=== PATIENT | male | born 1990 | race Caucasian/White ===

== ENCOUNTER 2020-08-16 11:51 | Emergency (ER) | payer OTHER ==
[~2020-08-16] VITALS: Ht 190.5 cm; Wt 82.3 kg
[2020-08-16] MEDS ORDERED: DEXAMETHASONE 4 MG/ML, 1ML PO ONE (12:30)
[2020-08-16] MEDS ORDERED: SODIUM CHLORIDE FLUSH 10ML SYR IVF ONE (12:30)
--- NOTE | 2020-08-16 12:38 | NUR ---
Pt sent from for possible tonsilar abcess on right side. S/sx started 6 days ago. Taking Fluticasone and Mucinex as prescribed. States he wakes up to drool in the morning but denies difficulty swallowing, states "it's just painful."
[2020-08-16 12:45] LABS: BASOPHILS % (AUTO) 1 % (0-1); EOSINOPHILS % (AUTO) 1 % (1-7); LYMPHOCYTES % (AUTO) 17 % (22-44); MEAN CORPUSCULAR HEMOGLOBIN 32.5 pg (27.5-34.5); MEAN CORPUSCULAR HGB CONC 35.4 g/dL (33.2-36.2); MEAN PLATELET VOLUME 7.6 fL (7.4-10.4); MONOCYTES % (AUTO) 11 % (2-9); NEUTROPHILS % (AUTO) 71 % (42-75); PLATELET COUNT 240 x10^3/uL (130-400); RED BLOOD COUNT 4.86 x10^6/uL (4.38-5.82); RED CELL DISTRIBUTION WIDTH 12.7 % (9.4-14.8)
[2020-08-16 12:56] LABS: MD NO
--- NOTE | 2020-08-16 13:20 | NUR ---
Pt to imaging at this time.
[2020-08-16 13:34] LABS: ALBUMIN 4.3 g/dL (3.4-5.0); ANION GAP 7 mmol/L (5-15); CALCIUM 9.2 mg/dL (8.5-10.1); CHLORIDE 108 mmol/L (98-107); CREATININE 1.09 mg/dL (0.7-1.3)
[2020-08-16] MEDS ORDERED: OMNIPAQUE 350 MG/ML, 100ML BOTTLE ONE (13:37)
--- NOTE | 2020-08-16 13:47 | NUR ---
MD Conway at bedside.
[2020-08-16] MEDS ORDERED: DEXAMETHASONE 4 MG TABLET ONE (13:48)
[2020-08-16] MEDS ORDERED: DEXAMETHASONE 4 MG/ML, 1ML ONE (13:53)
[2020-08-16 13:57] VITALS: BP 115/78
== END 2020-08-16 12:26 ==
LOC: ED 12:25
DX: J02.0 Streptococcal pharyngitis (principal); H92.01 Otalgia, right ear
CPT/HCPCS: 36415; 70491; 80048; 82040; 83880; 85025; 99285; J1100; Q9967